=== PATIENT | male | born 1955 | race Caucasian/White ===

== ENCOUNTER 2018-11-08 05:38 | Inpatient (IN) | payer BC ==
[~2018-11-08] VITALS: Ht 177.8 cm; Wt 70.8 kg
[~2018-11-08 05:38] MED LIST: NO HOME MEDS
[2018-11-08] MEDS ORDERED: insulin regular, human 10 units/0.1 ml syringe IV ONE (05:40)
[2018-11-08] MEDS ORDERED: insulin regular, human 10 units/0.1 ml syringe SQ ONE (05:40)
[2018-11-08] MEDS ORDERED: normal saline 1000ML IV soln IVB ONE ×2 (05:40→06:20)
--- NOTE | 2018-11-08 06:11 | NUR ---
DR SMITH AT BEDSIDE WITH PT
[2018-11-08] MEDS ORDERED: ondansetron/PF 4mg/2ml inj IV ONE (06:20)
[2018-11-08 06:38] LABS: ALANINE AMINOTRANSFERASE 18 U/L (12-78); ALBUMIN 3.7 G/DL (3.4-5.0); ALKALINE PHOSPHATASE 84 IU/L (46-116); ANION GAP 11 (8-16); ASPARTATE AMINO TRANSFERASE 14 U/L (10-37); BILIRUBIN,TOTAL 0.7 MG/DL (0.1-1.0); BLOOD UREA NITROGEN 8 MG/DL (7-18); BUN/CREATININE RATIO 9.1 (5.4-32.0); CALCIUM 9.9 MG/DL (8.5-10.1); CHLORIDE 103 MMOL/L (99-107); CREATININE 0.88 MG/DL (0.60-1.10); GLUCOSE 104 MG/DL (70-104); POTASSIUM 3.5 MMOL/L (3.5-5.1); SODIUM 138 MMOL/L (135-145); TOTAL PROTEIN 7.3 G/DL (6.4-8.2); eGFR 88 ML/MIN
[2018-11-08 06:43] LABS: CHOL/HDL RATIO 3.1 (0.00-4.99); CHOLESTEROL 166 MG/DL (0-200); HDL CHOLESTEROL 53 MG/DL (35-60); LDL CHOLESTEROL 94 MG/DL (50-100); TRIGLYCERIDES 84 MG/DL (20-135)
[2018-11-08 07:18] LABS: CLARITY,URINE CLEAR (Clear); COLOR,URINE YELLOW (Yellow); GLUCOSE, URINE NEGATIVE (Neg); KETONES,URINE 40 mg/dl (Neg); LEUKOCYTE ESTERASE ,URINE NEGATIVE (Neg); NITRITES, URINE NEGATIVE (Neg); OCCULT BLOOD,URINE SMALL (Neg); PROTEIN,URINE NEGATIVE (Neg); UROBILINOGEN,URINE 0.2 E.U/dL (0.2-1.0)
[2018-11-08 07:23] LABS: UA COLLECTION TYPE CLN CATCH MIDSTREAM
[2018-11-08 07:24] LABS: MUCUS STRANDS FEW /LPF (Neg); SQUAMOUS EPITHELIAL CELL,UR FEW /LPF (FEW)
[2018-11-08 07:25] LABS: BASOPHILS % (AUTO) 0.3 % (0-1); EOSINOPHILS % (AUTO) 0.6 % (0-6); HEMATOCRIT 43.4 % (42.0-52.0); LYMPHOCYTES # (AUTO) 0.9 X10'3 (1.1-4.8); LYMPHOCYTES % (AUTO) 12.5 % (21-51); MEAN CORPUSCULAR HEMOGLOBIN 32.8 PG (27.0-31.0); MEAN CORPUSCULAR HGB CONC 34.5 g/dL (33.0-36.5); MEAN PLATELET VOLUME 7.1 FL (7.4-10.4); MONOCYTES # (AUTO) 0.5 X10'3 (0-0.9); MONOCYTES % (AUTO) 6.3 % (2-12); NEUTROPHILS # (AUTO) 5.8 X10'3 (1.8-7.7); NEUTROPHILS % (AUTO) 80.3 % (42-75); PLATELET COUNT 297 X10'3 (140-440); RED BLOOD COUNT 4.57 X10'6 (4.70-6.10); RED CELL DISTRIBUTION WIDTH 12.7 % (11.5-14.5); WHITE BLOOD COUNT 7.3 X10'3 (4.5-11.0)
[2018-11-08 07:25] LABS: BACTERIA,URINE FEW /HPF (Neg); WBC,URINE 0-4 /HPF (0-4)
[2018-11-08] MEDS ORDERED: acetaminophen 325mg tablet PO PRN (08:05)
[2018-11-08] MEDS ORDERED: magnesium hydroxide 30ml (MOM) UD suspension PO PRN (08:05)
[2018-11-08] MEDS ORDERED: HYDROmorphone inj. 0.5 MG/0.5 ML DISP.SYRIN IV PRN (08:05)
[2018-11-08] MEDS ORDERED: HYDROcodone/acetaminophen 10/325mg tab PO PRN (08:05)
[2018-11-08] MEDS ORDERED: metoclopramide 5 mg/ml inj IV PRN (08:05)
[2018-11-08] MEDS ORDERED: HYDROcodone/acetaminophen 5mg/325mg tablet PO PRN (08:05)
[2018-11-08] MEDS ORDERED: ondansetron/PF 4mg/2ml inj IV PRN (08:05)
[2018-11-08] MEDS: normal saline 1000ml 1,000 ML IV SCH ×2 (08:45→19:31)
--- NOTE | 2018-11-08 09:20 | NUR ---
attempted to call report to ophelia franklin, RN unavailable to take report.
[2018-11-08 10:26] VITALS: BP 134/78
[2018-11-08 15:04] LABS: PARTIAL THROMBOPLASTIN TIME 30 SECONDS (22-32)
[2018-11-08] MEDS: cefotetan 1gm/50ml IVPB 50 ML IV SCH ×2 (16:20→19:32)
--- NOTE | 2018-11-08 18:50 | NUR ---
Patient in room [facility]. I have received report from HANK Cueto and had the opportunity to ask questions and assume patient care.
[2018-11-08 20:00] VITALS: BP_SYST 135; BP_SYST 140; BP_SYST 150; BP_DIAS 74; BP_DIAS 87
[2018-11-09] VITALS (14 sets, daily range): BP systolic 117–153; BP diastolic 62–94
[2018-11-09] MEDS: normal saline 1000ml 1,000 ML IV SCH (03:10)
[2018-11-09 04:45] LABS: BASOPHILS % (AUTO) 0.4 % (0-1); EOSINOPHILS # (AUTO) 0.1 X10'3 (0-0.9); EOSINOPHILS % (AUTO) 1.8 % (0-6); HEMATOCRIT 39.9 % (42.0-52.0); HEMOGLOBIN 13.6 g/dl (14.0-17.9); LYMPHOCYTES # (AUTO) 1.2 X10'3 (1.1-4.8); LYMPHOCYTES % (AUTO) 16.6 % (21-51); MEAN CORPUSCULAR HEMOGLOBIN 32.8 PG (27.0-31.0); MEAN CORPUSCULAR HGB CONC 34.1 g/dL (33.0-36.5); MEAN CORPUSCULAR VOLUME 96.1 FL (78-98); MEAN PLATELET VOLUME 7.1 FL (7.4-10.4); MONOCYTES # (AUTO) 0.7 X10'3 (0-0.9); MONOCYTES % (AUTO) 9.1 % (2-12); NEUTROPHILS # (AUTO) 5.4 X10'3 (1.8-7.7); NEUTROPHILS % (AUTO) 72.1 % (42-75); PLATELET COUNT 238 X10'3 (140-440); RED BLOOD COUNT 4.16 X10'6 (4.70-6.10); RED CELL DISTRIBUTION WIDTH 12.9 % (11.5-14.5); WHITE BLOOD COUNT 7.5 X10'3 (4.5-11.0)
[2018-11-09 04:48] LABS: ANION GAP 11 (8-16); BLOOD UREA NITROGEN 10 MG/DL (7-18); BUN/CREATININE RATIO 10.3 (5.4-32.0); CALCIUM 9.8 MG/DL (8.5-10.1); CHLORIDE 106 MMOL/L (99-107); CREATININE 0.97 MG/DL (0.60-1.10); GLUCOSE 58 MG/DL (70-104); POTASSIUM 3.9 MMOL/L (3.5-5.1); SODIUM 139 MMOL/L (135-145); TOTAL CARBON DIOXIDE 21.8 MMOL/L (24-32); eGFR 79 ML/MIN
[2018-11-09] MEDS ORDERED: dextrose 50%-water 50ml dispensing syringe IV ONE (04:55)
--- NOTE | 2018-11-09 06:19 | NUR ---
Problems reprioritized. Patient report given, questions answered & plan of care reviewed with HANK Rajput.
--- NOTE | 2018-11-09 06:22 | NUR ---
Patient in room [facility]. I have received report from HANK Black and had the opportunity to ask questions and assume patient care.
[2018-11-09] MEDS ORDERED: gentamicin 40 MG/1 ML inj ONE (15:15)
[2018-11-09] MEDS ORDERED: clindamycin phosphate 150mg/ml inj. ONE (15:15)
--- NOTE | 2018-11-09 18:17 | NUR ---
Patient in room [facility]. I have received report from Regulo Molina and had the opportunity to ask questions and assume patient care. Addendum: 11/09/18 at 1817 by Arti Rice RN Amended: Links added.
--- NOTE | 2018-11-09 18:17 | NUR ---
Problems reprioritized. Patient report given, questions answered & plan of care reviewed with HANK Chi.
[2018-11-09] MEDS ORDERED: ringers solution, lacted 1,000 ML IV SCH (18:42)
[2018-11-09] MEDS ORDERED: sevoflurane 250ml liquid IH ONE (18:45)
[2018-11-09] MEDS ORDERED: meperidine/PF 25mg/ml syringe IV PRN ×3 (18:45)
[2018-11-09] MEDS ORDERED: proCHLORperazine 10 MG/2 ml inj IV PRN (18:45)
[2018-11-09] MEDS: cefotetan inj 1 GM in normal saline 50ml IV soln 50 ML IV SCH ×2 (18:45→19:15)
[2018-11-09] MEDS ORDERED: ondansetron/PF 4mg/2ml inj IV PRN (18:45)
[2018-11-09] MEDS ORDERED: glycopyrrolate 0.2mg/ml inj ONE (18:45)
[2018-11-09] MEDS ORDERED: HYDROmorphone inj. 0.5 MG/0.5 ML DISP.SYRIN IV PRN ×2 (18:45)
[2018-11-09] MEDS ORDERED: midazolam 2 mg/2 ml injection ONE (18:48)
[2018-11-09] MEDS ORDERED: fentaNYL /PF 50mcg/ml 5ml ampule ONE ×2 (18:48→20:55)
[2018-11-09] MEDS ORDERED: propofol inj 20 ML IV ONE (18:49)
[2018-11-09] MEDS ORDERED: rocuronium 10mg/ml inj IV ONE ×3 (18:49→20:53)
--- NOTE | 2018-11-09 19:39 | NUR ---
pt remains off the floor had left for or prior to my coming on.
--- NOTE | 2018-11-09 20:00 | NUR ---
PT IN THE OPERATING ROOM Addendum: 11/10/18 at 0037 by Arti Rice RN Amended: Links added.
--- NOTE | 2018-11-09 20:00 | NUR ---
PT IN THE OPERATING ROOM UNABLE TO DO ORTHOSTATIC VITALS ON HIM. Addendum: 11/10/18 at 0039 by Arti Rice RN Amended: Links added.
[2018-11-09] MEDS ORDERED: albumin (Human) 5% 250ml 250 ML IV ONE (21:52)
[2018-11-09] MEDS ORDERED: ACETAMINOPHEN 1000 MG/100 ML IV ONE (21:55)
[2018-11-09] MEDS ORDERED: neostigmine methylsulfate 1 MG/ML 10ml vial ONE (22:48)
[2018-11-09] MEDS ORDERED: fluoroscein sod 10% (100mg/ml) 5ml vial ONE (23:01)
[2018-11-09] MEDS ORDERED: HYDROcodone/acetaminophen 10/325mg tab PO PRN (23:10)
--- NOTE | 2018-11-09 23:10 | NUR ---
Received from OR via bed, accompanied by Anesthesiologist. Report received. Initial physical assessment done and recorded. Dr. Mehta at bedside.
[2018-11-09] MEDS ORDERED: HYDROmorphone/NS 1 mg/ml CADD 50 ML IV SCH (23:15)
[2018-11-09] MEDS ORDERED: naloxone 0.4 mg/ml inj IV PRN (23:15)
[2018-11-09] MEDS ORDERED: CADD PCA waste documentation MC SCH (23:20)
[2018-11-09] MEDS: ketorolac trometh. 30mg/ml inj. IV PRN (23:50)
[2018-11-10] VITALS (12 sets, daily range): BP systolic 108–151; BP diastolic 66–85
[2018-11-10] MEDS ORDERED: HYDROmorphone/NS 1 mg/ml CADD 50 ML IV SCH
[2018-11-10] MEDS: normal saline 1000ml 1,000 ML IV SCH ×5 (00:03→23:25)
--- NOTE | 2018-11-10 00:10 | NUR ---
Discharge criteria met, report to receiving floor. Transferred to room in stable condition.
[2018-11-10] MEDS: HYDROmorphone/NS 1 mg/ml CADD 50 ML IV SCH ×13 (00:12→23:00)
--- NOTE | 2018-11-10 01:30 | NUR ---
pt awoke asked what was done. pain under control with encouraging cadd use. scd's put on arrival and still on.
--- NOTE | 2018-11-10 02:00 | NUR ---
TOOK OVER CARE FROM TOMI MCKINNEY, I AGREE WITH HER CHARTING. WILL CONTINUE TO MONITOR.
--- NOTE | 2018-11-10 02:02 | NUR ---
Problems reprioritized. Patient report given, questions answered & plan of care reviewed with Roselia Molina.
--- NOTE | 2018-11-10 06:13 | NUR ---
Patient in room [facility]. I have received report from gopal MCKINNEY and had the opportunity to ask questions and assume patient care.
[2018-11-10 06:36] LABS: BASOPHILS % (AUTO) 0.1 % (0-1); EOSINOPHILS % (AUTO) 0 % (0-6); HEMATOCRIT 36.9 % (42.0-52.0); HEMOGLOBIN 12.5 g/dl (14.0-17.9); LYMPHOCYTES # (AUTO) 0.2 X10'3 (1.1-4.8); LYMPHOCYTES % (AUTO) 2.2 % (21-51); MEAN CORPUSCULAR HEMOGLOBIN 32.7 PG (27.0-31.0); MEAN PLATELET VOLUME 6.5 FL (7.4-10.4); MONOCYTES # (AUTO) 0.4 X10'3 (0-0.9); MONOCYTES % (AUTO) 5.9 % (2-12); NEUTROPHILS # (AUTO) 6.4 X10'3 (1.8-7.7); NEUTROPHILS % (AUTO) 91.8 % (42-75); PLATELET COUNT 202 X10'3 (140-440); RED BLOOD COUNT 3.84 X10'6 (4.70-6.10); RED CELL DISTRIBUTION WIDTH 13.1 % (11.5-14.5)
--- NOTE | 2018-11-10 06:49 | NUR ---
Problems reprioritized. Patient report given, questions answered & plan of care reviewed with ELMA MCKINNEY.
[2018-11-10 06:52] LABS: ALBUMIN 3.2 G/DL (3.4-5.0); ANION GAP 12 (8-16); BLOOD UREA NITROGEN 8 MG/DL (7-18); BUN/CREATININE RATIO 9.3 (5.4-32.0); CALCIUM 9.1 MG/DL (8.5-10.1); CHLORIDE 105 MMOL/L (99-107); CREATININE 0.86 MG/DL (0.60-1.10); GLUCOSE 73 MG/DL (70-104); POTASSIUM 3.5 MMOL/L (3.5-5.1); SODIUM 139 MMOL/L (135-145); TOTAL CARBON DIOXIDE 22.1 MMOL/L (24-32); eGFR 90 ML/MIN
[2018-11-10] MEDS: cefotetan 1gm/50ml IVPB 50 ML IV SCH ×2 (07:23→20:29)
[2018-11-10 07:40] LABS: TOTAL CELLS COUNTED 100
[2018-11-10 07:41] LABS: PLATELET ESTIMATE NORMAL
--- NOTE | 2018-11-10 18:34 | NUR ---
Problems reprioritized. Patient report given, questions answered & plan of care reviewed with Nabeel MCKINNEY.
--- NOTE | 2018-11-10 18:35 | NUR ---
Patient in room [facility]. I have received report from ELMA MCKINNEY and had the opportunity to ask questions and assume patient care.
[2018-11-10] MEDS: ondansetron/PF 4mg/2ml inj IV PRN (19:29)
[2018-11-10] MEDS: mag hydrox/Alum hydrox/simeth 30ml oral suspension PO PRN (19:34)
[2018-11-11] VITALS: BP 111/68
[2018-11-11] MEDS: HYDROmorphone/NS 1 mg/ml CADD 50 ML IV SCH ×12 (01:00→22:52)
[2018-11-11 06:15] LABS: BASOPHILS % (AUTO) 0.2 % (0-1); EOSINOPHILS # (AUTO) 0.1 X10'3 (0-0.9); EOSINOPHILS % (AUTO) 1.3 % (0-6); HEMATOCRIT 29.2 % (42.0-52.0); HEMOGLOBIN 10.3 g/dl (14.0-17.9); LYMPHOCYTES # (AUTO) 0.6 X10'3 (1.1-4.8); LYMPHOCYTES % (AUTO) 6.6 % (21-51); MEAN CORPUSCULAR HEMOGLOBIN 33.7 PG (27.0-31.0); MEAN CORPUSCULAR HGB CONC 35.4 g/dL (33.0-36.5); MEAN CORPUSCULAR VOLUME 95.1 FL (78-98); MEAN PLATELET VOLUME 6.9 FL (7.4-10.4); MONOCYTES # (AUTO) 0.6 X10'3 (0-0.9); NEUTROPHILS # (AUTO) 8.2 X10'3 (1.8-7.7); NEUTROPHILS % (AUTO) 85.9 % (42-75); PLATELET COUNT 185 X10'3 (140-440); RED BLOOD COUNT 3.07 X10'6 (4.70-6.10); RED CELL DISTRIBUTION WIDTH 12.6 % (11.5-14.5); WHITE BLOOD COUNT 9.6 X10'3 (4.5-11.0)
--- NOTE | 2018-11-11 06:27 | NUR ---
Problems reprioritized. Patient report given, questions answered & plan of care reviewed with ELMA MCKINNEY.
--- NOTE | 2018-11-11 06:34 | NUR ---
Patient in room [facility]. I have received report from Nabeel MCKINNEY and had the opportunity to ask questions and assume patient care.
[2018-11-11 06:41] LABS: ALBUMIN 2.3 G/DL (3.4-5.0); ANION GAP 5 (8-16); BLOOD UREA NITROGEN 9 MG/DL (7-18); BUN/CREATININE RATIO 10.3 (5.4-32.0); CALCIUM 8.2 MG/DL (8.5-10.1); CHLORIDE 106 MMOL/L (99-107); CREATININE 0.87 MG/DL (0.60-1.10); GLUCOSE 102 MG/DL (70-104); POTASSIUM 3.3 MMOL/L (3.5-5.1); SODIUM 139 MMOL/L (135-145); TOTAL CARBON DIOXIDE 28.4 MMOL/L (24-32); eGFR 89 ML/MIN
[2018-11-11 06:56] VITALS: BP 125/70
[2018-11-11] MEDS: normal saline 1000ml 1,000 ML IV SCH (10:48)
[2018-11-11] MEDS: ondansetron/PF 4mg/2ml inj IV PRN ×2 (14:13→21:40)
[2018-11-11] MEDS: mag hydrox/Alum hydrox/simeth 30ml oral suspension PO PRN ×2 (14:16→21:40)
--- NOTE | 2018-11-11 18:30 | NUR ---
Patient in room [facility]. I have received report from HANK Mancia and had the opportunity to ask questions and assume patient care. Addendum: 11/11/18 at 1843 by Andres Fonseca RN Amended: Links added.
--- NOTE | 2018-11-11 18:31 | NUR ---
patient having difficulty voiding Dr Rogers called. Patient scanned 850mls observed, patient straight cathed only 250mls out. patient bladder scanned again 650 observed. patient encouraged to void. unable to void. order received to place Amato cathter. 950mls observed in drainage bag. patient appears comfortable now. Seen in am by Dr Mart. wound orders given see intervention. Tolerating clear liquid diet. Continues with Dilaudid cadd. report given to noelle MCKINNEY
[2018-11-11 19:00] VITALS: BP 123/71
[2018-11-11 22:15] VITALS: BP 150/81
--- NOTE | 2018-11-11 22:15 | NUR ---
pt has been coughing, feels like sputum was stuck in through. enc pt to splint abd with pillow or blanket to c&db. pt coughed up thick isbell sputum x2, now states good relied. sob gone. Addendum: 11/12/18 at 0203 by Andres Fonseca RN Amended: Links added.
[2018-11-12] MEDS: HYDROmorphone/NS 1 mg/ml CADD 50 ML IV SCH ×9 (00:50→16:25)
[2018-11-12] MEDS: ketorolac trometh. 30mg/ml inj. IV PRN ×4 (04:19→17:35)
--- NOTE | 2018-11-12 04:24 | NUR ---
pt feels like "blood sugar" might be low. bg wnl. denies dizzines, states just not feeling well. Addendum: 11/12/18 at 0427 by Andres Fonseca RN Amended: Links added.
[2018-11-12 05:22] LABS: BASOPHILS % (AUTO) 0.2 % (0-1); EOSINOPHILS % (AUTO) 0.1 % (0-6); HEMATOCRIT 35.5 % (42.0-52.0); HEMOGLOBIN 12.3 g/dl (14.0-17.9); LYMPHOCYTES # (AUTO) 0.4 X10'3 (1.1-4.8); LYMPHOCYTES % (AUTO) 2.6 % (21-51); MEAN CORPUSCULAR HEMOGLOBIN 32.6 PG (27.0-31.0); MEAN CORPUSCULAR HGB CONC 34.6 g/dL (33.0-36.5); MEAN CORPUSCULAR VOLUME 94.4 FL (78-98); MEAN PLATELET VOLUME 6.9 FL (7.4-10.4); MONOCYTES # (AUTO) 0.6 X10'3 (0-0.9); MONOCYTES % (AUTO) 4.5 % (2-12); NEUTROPHILS # (AUTO) 13.1 X10'3 (1.8-7.7); NEUTROPHILS % (AUTO) 92.6 % (42-75); PLATELET COUNT 249 X10'3 (140-440); RED BLOOD COUNT 3.76 X10'6 (4.70-6.10); WHITE BLOOD COUNT 14.1 X10'3 (4.5-11.0)
[2018-11-12 05:33] LABS: ALBUMIN 2.7 G/DL (3.4-5.0); ANION GAP 6 (8-16); BLOOD UREA NITROGEN 12 MG/DL (7-18); BUN/CREATININE RATIO 13.5 (5.4-32.0); CHLORIDE 100 MMOL/L (99-107); CREATININE 0.89 MG/DL (0.60-1.10); GLUCOSE 139 MG/DL (70-104); POTASSIUM 3.6 MMOL/L (3.5-5.1); SODIUM 138 MMOL/L (135-145); TOTAL CARBON DIOXIDE 31.7 MMOL/L (24-32); eGFR 87 ML/MIN
[2018-11-12 05:44] LABS: CALCIUM 10.1 MG/DL (8.5-10.1)
--- NOTE | 2018-11-12 06:21 | NUR ---
Problems reprioritized. Patient report given, questions answered & plan of care reviewed with HANK MARTINEZ. Addendum: 11/12/18 at 0622 by Andres Fonseca RN Amended: Links added.
--- NOTE | 2018-11-12 06:30 | NUR ---
Patient in room [facility]. I have received report from Sugey MCKINNEY and had the opportunity to ask questions and assume patient care.
[2018-11-12 07:09] VITALS: BP 144/88
[2018-11-12] MEDS: normal saline 1000ml 1,000 ML IV SCH ×2 (08:58→19:27)
[2018-11-12 11:54] VITALS: BP 142/84
[2018-11-12] MEDS: mag hydrox/Alum hydrox/simeth 30ml oral suspension PO PRN (14:03)
[2018-11-12] MEDS ORDERED: calcium carbonate 500mg chew tablet PO PRN (16:05)
[2018-11-12] MEDS ORDERED: acetaminophen 325mg tablet PO PRN (16:05)
--- NOTE | 2018-11-12 18:09 | NUR ---
Problems reprioritized. Patient report given, questions answered & plan of care reviewed with Evelyn MCKINNEY.
--- NOTE | 2018-11-12 18:20 | NUR ---
Patient in room [facility]. I have received report from Antoinette MCKINNEY and had the opportunity to ask questions and assume patient care.
[2018-11-12 19:00] VITALS: BP 140/86
--- NOTE | 2018-11-12 19:00 | NUR ---
Patient drank his apple juice only. Patient denied having any nausea or pain to abdomen. First time with full liquids and patient did not seem impressed. Offered jello, more juice,tea, patient stated "no".Offered to take away his tray and pt. stated, "no, have that boy come and take the tray away in 10 minutes". Patient would not let me take his tray at this time. Addendum: 11/12/18 at 2226 by Evelyn Regan RN Amended: Links added.
[2018-11-12] MEDS: piperacillin/tazo 3.375gm/50ml 50 ML IV SCH (19:27)
--- NOTE | 2018-11-12 19:30 | NUR ---
Assessing patient who stated, "and yes, this needs emptying" pointing to his colostomy bag. I replied that I would get a cannister for him to empty it in to. Pt. said, "don't you get paid to do that? "To which I replied that yes I do, and also part of nursing is to help educate patients on their own self care and to encourage this for their own recovery. Pt. replied, " so you get paid the same whether you empty it or not". I replied that yes, I do, and I would be happy to assist him if needed, and that my understanding from the previous nurse was that he is doing really good by himself and even changed out his colostomy bag earlier today. Patient appeared upset at this time so I asked him, do you want to stay in the bed and try to empty, or go to the toilet and try leaning over. Patient stated that he could walk, and that he would go to the bathroom. As patient was standing in front of the toilet, his f/c tubing was hanging down in front of him as well as his IV tubing. Patient went to open colostomy bag saying " so I'll just let it splash down then, to which I replied, no, it might be better if you sit on the toilet instead and do it that way. I was guiding patient on how to turn when he pushed the IV pole into me and yelled "stop pushing me down on to the toilet". At this time I had been pushed out of bathroom door. Patient yelled at me to leave him and get out of his room and close the door behind me. I reported all this to charge nurse and asked that he go check on the patient to make sure he was ok.
--- NOTE | 2018-11-12 20:00 | NUR ---
Later on after the charge nurse had gone in to check on patient and help him, I knocked on the door and went in with pt's medications. Patient stated " I want Russel to give me my medication not you, and I don't want you in my room again." Another nurse offered to see if he would take them from her, as charge nurse busy, and patient did.
[2018-11-12] MEDS: tamsulosin 0.4mg capsule PO SCH (20:27)
[2018-11-12] MEDS: famotidine 20mg tablet PO SCH (20:27)
[2018-11-12] MEDS ORDERED: piperacillin/tazo 3.375gm/50ml 50 ML IV SCH (22:26)
[2018-11-13] VITALS: BP 140/86
[2018-11-13] MEDS: piperacillin/tazo 3.375gm/50ml 50 ML IV SCH ×4 (03:41→21:49)
[2018-11-13 05:12] LABS: BASOPHILS # (AUTO) 0.1 X10'3 (0-0.2); BASOPHILS % (AUTO) 0.5 % (0-1); EOSINOPHILS # (AUTO) 0.6 X10'3 (0-0.9); EOSINOPHILS % (AUTO) 4.6 % (0-6); HEMATOCRIT 33.2 % (42.0-52.0); HEMOGLOBIN 11.2 g/dl (14.0-17.9); LYMPHOCYTES # (AUTO) 0.6 X10'3 (1.1-4.8); LYMPHOCYTES % (AUTO) 4.3 % (21-51); MEAN CORPUSCULAR HEMOGLOBIN 32.4 PG (27.0-31.0); MEAN CORPUSCULAR HGB CONC 33.7 g/dL (33.0-36.5); MEAN CORPUSCULAR VOLUME 96.3 FL (78-98); MEAN PLATELET VOLUME 7.2 FL (7.4-10.4); MONOCYTES # (AUTO) 0.7 X10'3 (0-0.9); MONOCYTES % (AUTO) 5.3 % (2-12); NEUTROPHILS # (AUTO) 11.2 X10'3 (1.8-7.7); NEUTROPHILS % (AUTO) 85.3 % (42-75); PLATELET COUNT 259 X10'3 (140-440); RED BLOOD COUNT 3.45 X10'6 (4.70-6.10); WHITE BLOOD COUNT 13.1 X10'3 (4.5-11.0)
[2018-11-13 05:18] LABS: ALBUMIN 2.3 G/DL (3.4-5.0); ANION GAP 2 (8-16); BLOOD UREA NITROGEN 19 MG/DL (7-18); BUN/CREATININE RATIO 19.2 (5.4-32.0); CALCIUM 10.8 MG/DL (8.5-10.1); CHLORIDE 104 MMOL/L (99-107); CREATININE 0.99 MG/DL (0.60-1.10); GLUCOSE 111 MG/DL (70-104); POTASSIUM 3.9 MMOL/L (3.5-5.1); SODIUM 137 MMOL/L (135-145); TOTAL CARBON DIOXIDE 30.9 MMOL/L (24-32); eGFR 77 ML/MIN
--- NOTE | 2018-11-13 06:01 | NUR ---
Patient in room [facility]. I have received report from Evelyn MCKINNEY and had the opportunity to ask questions and assume patient care.
--- NOTE | 2018-11-13 06:02 | NUR ---
Patient in room [facility]. I have received report from Evelyn MCKINNEY and had the opportunity to ask questions and assume patient care.
--- NOTE | 2018-11-13 06:20 | NUR ---
Problems reprioritized. Patient report given, questions answered & plan of care reviewed with Antoinette MCKINNEY.
[2018-11-13 07:39] VITALS: BP 131/75
[2018-11-13] MEDS: famotidine 20mg tablet PO SCH ×2 (07:58→21:47)
[2018-11-13] MEDS: enoxaparin 40mg/0.4ml syringe SUBCUT SCH (07:59)
[2018-11-13] MEDS: ketorolac trometh. 30mg/ml inj. IV PRN (08:06)
[2018-11-13] MEDS: acetaminophen 325mg tablet PO PRN (08:07)
[2018-11-13 11:41] VITALS: BP 124/71
--- NOTE | 2018-11-13 12:31 | NUR ---
Patient would like to wait to take out FC after he eats lunch.
--- NOTE | 2018-11-13 12:59 | NUR ---
Wound team POC. Arrived at bedside for assistance and education with new ostomy. Explained procedure to pt and pt gave informed verbal consent. Pt is alert and reports no pain at this time. Pt with new colostomy following a sigmoid colectomy performed on 11/09/[address] Mehta after he presented to the ED with severe abdominal pain and vomitting. Pt states he has been assisting nursing with care and changing of the wafer and does not want it removed at this time. Assessed stoma appearance through the bag and it appears moist, red and intact with no signs of complications. Provided educational material and answered all questions bedside. Bed left in lowest position, call light and personal items within reach. Addendum: 11/13/18 at 1302 by Kyle Irving RN Amended: Links added.
--- NOTE | 2018-11-13 14:33 | NUR ---
Initial: Pt admit with abdominal pain and with possible partial small-bowel obstruction. Pt now s/p Gonzales's procedure. Pt seen at bedside given written and verbal colostomy nutrition therapy education. Pt with no questions at this time. RD contact information provided. Patient's diet just advanced to regular. Pt reports low appetite s/p surgery however states he is generally with low PO intake. Pt denies any food allergies and endorses some difficulty chewing, pt agreeable to soft to chew foods, dietary notified. LBM 11/12 with 1350 mL stool output per I&O. Will continue to follow. Recommendations: 1) Continue regular soft to chew diet 2) Monitor need for ONS 3) Wt per rx Addendum: 11/13/18 at [address] Amended: Links added.
--- NOTE | 2018-11-13 16:13 | NUR ---
CHIARA drain DC'd at 1605. Catheter intact, pt tolerated well. Drain incision site covered with optifoam. Will continue to monitor.
--- NOTE | 2018-11-13 18:04 | NUR ---
Problems reprioritized. Patient report given, questions answered & plan of care reviewed with Nicole MCKINNEY.
[2018-11-13 20:00] VITALS: BP 142/80
[2018-11-13] MEDS: tamsulosin 0.4mg capsule PO SCH (21:47)
[2018-11-13] MEDS: lactobacillus rhamnosus 10,000 MMU CELLS/CAPSULE PO SCH (21:47)
--- NOTE | 2018-11-13 23:55 | NUR ---
Bladder scan @2300 showed 270ml. Will continue to monitor.
[2018-11-14] VITALS: BP 128/78
--- NOTE | 2018-11-14 00:30 | NUR ---
Patient noted to have a small leakage from ostomy site. Attempted to change ostomy. Patient states his diameter size is 59mm. The last time it got changed it took the nurse over 5 hrs to find the correct size. Patient states the 57mm does not work it is TOO SMALL. Charge nurse went to ICU, Tele, and down to the stock room to located the size. Unable to located the correct size. Nurse applied silk tape to the edges of the ostomy. Will continue with care.
[2018-11-14] MEDS: piperacillin/tazo 3.375gm/50ml 50 ML IV SCH ×2 (04:08→12:08)
[2018-11-14] MEDS: acetaminophen 325mg tablet PO PRN (04:14)
--- NOTE | 2018-11-14 04:30 | NUR ---
Ostomy not leaking with tape applied.
--- NOTE | 2018-11-14 05:51 | NUR ---
Patient bladder scan this morning showed 490ml. Straight cath under sterile procedure. Return 550m of clear yellow urine. Patient tolerated well.
--- NOTE | 2018-11-14 06:30 | NUR ---
Patient in room [facility]. I have received report from Hollie and had the opportunity to ask questions and assume patient care. Addendum: 11/14/18 at 1057 by Carmenza Cruz RN Amended: Links added.
--- NOTE | 2018-11-14 06:40 | NUR ---
Problems reprioritized. Patient report given, questions answered & plan of care reviewed with Carmenza MCKINNEY.
[2018-11-14 07:00] VITALS: BP 138/83
[2018-11-14] MEDS: enoxaparin 40mg/0.4ml syringe SUBCUT SCH (07:37)
[2018-11-14] MEDS: lactobacillus rhamnosus 10,000 MMU CELLS/CAPSULE PO SCH (07:37)
[2018-11-14] MEDS: famotidine 20mg tablet PO SCH (07:37)
[2018-11-14] MEDS ORDERED: ONDA4TAB6 PO (09:33)
[2018-11-14] MEDS ORDERED: AMOX-580 PO (09:38)
[2018-11-14] MEDS ORDERED: FLO0.4C PO (10:33)
[2018-11-14 12:00] VITALS: BP 136/77
[2018-11-15] MEDS ORDERED: ibuprofen 200mg tablet PO PRN (08:00)
== END 2018-11-14 17:50 | disposition home health service (06) | DRG 331 ==
LOC: ER 05:38 → OBSVTOIN 10:03 → SUR 3N 10:03 → CMPBEDREQ 11-12 19:45
PROVIDERS: ADMIT Internal Medicine; ATTEND Internal Medicine
PROC: 0DBP0ZZ Excision of Rectum, Open Approach (ICD-10-PCS; 2018-11-09)
PROC: 0D1N0Z4 Bypass Sigmoid Colon to Cutaneous, Open Approach (ICD-10-PCS; 2018-11-09)
PROC: 0DBN0ZZ Excision of Sigmoid Colon, Open Approach (ICD-10-PCS; principal; 2018-11-09 18:46)
DX: K56.691 Other complete intestinal obstruction (principal); F12.90 Cannabis use, unspecified, uncomplicated; F17.210 Nicotine dependence, cigarettes, uncomplicated; K63.9 Disease of intestine, unspecified; J45.909 Unspecified asthma, uncomplicated; R33.9 Retention of urine, unspecified; Z79.899 Other long term (current) drug therapy
CPT/HCPCS: 96361; 96374; 99285; Z7506; 36415; 74176; 80048; 80053; 80061; 81001; 82378; 82948; 85025; 85610; 85730; 86885; 86900; 86901; 86920; 87070; 93005; 97116; 97161; 97530; A4421; A6253; A6266; A6449; A7000; C1758; G0378; J0131; J1170; J1580; J1650; J1885; J2250; J2405; J2543; J2704; J2710; J2765; J3010; J3490; J7030; J7040; J7120; P9045

== ENCOUNTER 2019-01-15 07:07 | Inpatient (IN) | payer BC ==
[2019-01-14 10:33] LABS: BASOPHILS # (AUTO) 0.1 X10'3 (0-0.2); BASOPHILS % (AUTO) 1.1 % (0-1); EOSINOPHILS # (AUTO) 0.5 X10'3 (0-0.9); EOSINOPHILS % (AUTO) 8.1 % (0-6); LYMPHOCYTES # (AUTO) 1.7 X10'3 (1.1-4.8); MEAN CORPUSCULAR HEMOGLOBIN 31.6 PG (27.0-31.0); MEAN CORPUSCULAR HGB CONC 33.4 g/dL (33.0-36.5); MEAN CORPUSCULAR VOLUME 94.6 FL (78-98); MEAN PLATELET VOLUME 7.1 FL (7.4-10.4); MONOCYTES # (AUTO) 0.4 X10'3 (0-0.9); MONOCYTES % (AUTO) 7.8 % (2-12); PRE OP PLATELET COUNT 241 X10'3 (140-440); RED BLOOD COUNT 4.44 X10'6 (4.70-6.10); RED CELL DISTRIBUTION WIDTH 14.8 % (11.5-14.5)
[2019-01-14 11:21] LABS: CLARITY,URINE CLEAR (Clear); COLOR,URINE STRAW (Yellow); GLUCOSE, URINE NEGATIVE (Neg); KETONES,URINE NEGATIVE (Neg); LEUKOCYTE ESTERASE ,URINE NEGATIVE (Neg); NITRITES, URINE NEGATIVE (Neg); OCCULT BLOOD,URINE NEGATIVE (Neg); PROTEIN,URINE NEGATIVE (Neg); UROBILINOGEN,URINE 0.2 E.U/dL (0.2-1.0)
[2019-01-14 11:25] LABS: ALKALINE PHOSPHATASE 84 IU/L (46-116); BLOOD UREA NITROGEN 12 MG/DL (7-18); BUN/CREATININE RATIO 12.5 (5.4-32.0); CALCIUM 10.5 MG/DL (8.5-10.1); CHLORIDE 107 MMOL/L (99-107); CREATININE 0.96 MG/DL (0.60-1.10); PRE OP ALT 23 U/L (30-65); PRE OP ANION GAP 6 (8-16); PRE OP AST 16 U/L (10-37); PRE OP BILIRUB, TOTAL 0.3 MG/DL (0.0-1.0); PRE OP GLUCOSE 90 MG/DL (70-104); PRE OP SODIUM 141 MMOL/L (135-145); TOTAL CARBON DIOXIDE 27.9 MMOL/L (24-32); TOTAL PROTEIN 8.2 G/DL (6.4-8.2); eGFR 80 ML/MIN
[2019-01-14 11:27] LABS: UA COLLECTION TYPE CLN CATCH MIDSTREAM
[~2019-01-15] VITALS: Ht 177.8 cm; Wt 70.0 kg
[2019-01-15] VITALS (21 sets, daily range): BP systolic 120–156; BP diastolic 58–94
[2019-01-15] MEDS ORDERED: ringers solution, lacted 1,000 ML IV SCH ×2 (07:15→08:20)
[2019-01-15] MEDS ORDERED: ceFOXitin sod/dextrose 2g/50ml 50 ML IV ONE (07:15)
[2019-01-15] MEDS ORDERED: famotidine 20mg tablet PO ONE (07:15)
[2019-01-15] MEDS ORDERED: ondansetron/PF 4mg/2ml inj IV PRN (08:20)
[2019-01-15] MEDS ORDERED: meperidine/PF 25mg/ml syringe IV PRN ×2 (08:20)
[2019-01-15] MEDS ORDERED: proCHLORperazine 10 MG/2 ml inj IV PRN (08:20)
[2019-01-15] MEDS ORDERED: gentamicin 40 MG/1 ML inj ONE (13:27)
[2019-01-15] MEDS ORDERED: clindamycin phosphate 150mg/ml inj. ONE (13:27)
[2019-01-15] MEDS ORDERED: glycopyrrolate 0.2mg/ml inj ONE (13:47)
[2019-01-15] MEDS ORDERED: sevoflurane 250ml liquid IH ONE (13:47)
[2019-01-15] MEDS ORDERED: ondansetron/PF 4mg/2ml inj ONE (13:47)
[2019-01-15] MEDS ORDERED: dexamethasone sod phosphate 10mg/ml inj ONE (13:47)
[2019-01-15] MEDS ORDERED: neostigmine methylsulfate 1 MG/ML 10ml vial ONE (13:47)
[2019-01-15] MEDS ORDERED: LIDOcaine 1%/PF 5ML 10 MG/ML VIAL ONE (13:47)
[2019-01-15] MEDS ORDERED: rocuronium 10mg/ml inj IV ONE ×2 (13:47→14:14)
[2019-01-15] MEDS ORDERED: fentaNYL /PF 50mcg/ml 5ml ampule ONE (13:49)
[2019-01-15] MEDS ORDERED: propofol inj 20 ML IV ONE (13:49)
[2019-01-15] MEDS ORDERED: midazolam 2 mg/2 ml injection ONE (13:49)
[2019-01-15] MEDS ORDERED: BUPIVACAINE liposomal/PF 13.3 MG/ML vial IM ONE ×2 (16:13→16:40)
[2019-01-15] MEDS ORDERED: BUPIVAcaine/PF 2.5mg/ml (0.25%) 10ml vial ONE (16:13)
[2019-01-15] MEDS ORDERED: BUPIVAcaine/PF 2.5 mg/ml (0.25%) 30ml vial ONE (16:13)
--- NOTE | 2019-01-15 17:09 | NUR ---
Received from OR via , accompanied by Anesthesiologist DR. WRIGHT and report given by Anesthesiolgist. PATIENT ARRIVED ON HOSPITAL BED. VSS CHARTED, ABD DRESSING WITH MINIMAL DRAINAGE NOTED AND CIRCLED. CHIARA IN PLACE WITH CLEMENTE RED DRAINAGE NOTED. SCDS IN PLACE, PIV IN PLACE WITH IVF INFUSING ORDERED. WILL CONTINUE TO MONITOR.
--- NOTE | 2019-01-15 17:30 | NUR ---
PATIENT VERY PAINFUL DR. RAMIREZ MADE AWARE DIL CADD ORDERED.
[2019-01-15] MEDS: meperidine/PF 25mg/ml syringe IV PRN ×2 (17:46→18:19)
[2019-01-15] MEDS: HYDROmorphone 1 mg/ml syringe IV PRN (17:50)
[2019-01-15] MEDS ORDERED: naloxone 0.4 mg/ml inj IV PRN (18:45)
[2019-01-15] MEDS ORDERED: CADD PCA waste documentation MC SCH (18:45)
[2019-01-15] MEDS: HYDROmorphone/NS 1 mg/ml CADD 50 ML IV SCH ×4 (19:00→23:00)
--- NOTE | 2019-01-15 19:15 | NUR ---
Patient transported by HANK Ricciair quality specialist nurse via [facility]. Patient painful but had just had CADD placed prior to transport. Otherwise in no apparent distress.
--- NOTE | 2019-01-15 19:29 | NUR ---
PATIENT DISCHARGE CRITERIA MET, REPORT CALLED TO SHANE MCKINNEY ON SURG, ALL QUESTIONS AND CONCERNS ADDRESSED. ABD DRESSING CDI, CHIARA IN PLACE, SCDS IN PLACE. FC DRAINING. PATIENT TRANSFERRED WITH ALL PERSONAL BELONGINGS ACCOMPANIED BY STAFF.
[2019-01-15] MEDS: potassium CL 20mEq in D5-1/2NS 1,000 ML IV SCH (22:13)
[2019-01-16] VITALS: BP 129/81
[2019-01-16] MEDS ORDERED: ceFOXitin 1 GM/D5W 50mL IVPB 1,000 GM in normal saline 100ml IV soln 100 ML IV SCH ×2
[2019-01-16] MEDS: ceFOXitin 1 GM/D5W 50mL IVPB 50 ML IV SCH ×2 (00:13→08:31)
[2019-01-16] MEDS: potassium CL 20mEq in D5-1/2NS 1,000 ML IV SCH ×3 (00:56→15:55)
[2019-01-16] MEDS: HYDROmorphone/NS 1 mg/ml CADD 50 ML IV SCH ×12 (01:00→23:00)
[2019-01-16 04:00] VITALS: BP 134/77
[2019-01-16 04:59] LABS: BASOPHILS % (AUTO) 0.1 % (0-1); EOSINOPHILS % (AUTO) 0 % (0-6); HEMATOCRIT 35.6 % (42.0-52.0); HEMOGLOBIN 12.2 g/dl (14.0-17.9); LYMPHOCYTES # (AUTO) 0.4 X10'3 (1.1-4.8); LYMPHOCYTES % (AUTO) 4.5 % (21-51); MEAN CORPUSCULAR HEMOGLOBIN 32.1 PG (27.0-31.0); MEAN CORPUSCULAR HGB CONC 34.2 g/dL (33.0-36.5); MEAN CORPUSCULAR VOLUME 93.8 FL (78-98); MEAN PLATELET VOLUME 7.1 FL (7.4-10.4); MONOCYTES # (AUTO) 0.5 X10'3 (0-0.9); MONOCYTES % (AUTO) 5.5 % (2-12); NEUTROPHILS # (AUTO) 8.3 X10'3 (1.8-7.7); NEUTROPHILS % (AUTO) 89.9 % (42-75); PLATELET COUNT 241 X10'3 (140-440); RED BLOOD COUNT 3.79 X10'6 (4.70-6.10); RED CELL DISTRIBUTION WIDTH 14.6 % (11.5-14.5); WHITE BLOOD COUNT 9.3 X10'3 (4.5-11.0)
[2019-01-16 05:08] LABS: ALBUMIN 3.1 G/DL (3.4-5.0); ANION GAP 8 (8-16); BLOOD UREA NITROGEN 16 MG/DL (7-18); BUN/CREATININE RATIO 13.4 (5.4-32.0); CALCIUM 8.9 MG/DL (8.5-10.1); CHLORIDE 106 MMOL/L (99-107); CREATININE 1.19 MG/DL (0.60-1.10); GLUCOSE 180 MG/DL (70-104); POTASSIUM 4.6 MMOL/L (3.5-5.1); SODIUM 137 MMOL/L (135-145); TOTAL CARBON DIOXIDE 23.5 MMOL/L (24-32); eGFR 62 ML/MIN
--- NOTE | 2019-01-16 06:16 | NUR ---
Problems reprioritized. Patient report given, questions answered & plan of care reviewed with HANK Mancia.
[2019-01-16 07:00] VITALS: BP 117/69
--- NOTE | 2019-01-16 07:12 | NUR ---
Patient in room [facility]. I have received report from Yash MCKINNEY and had the opportunity to ask questions and assume patient care.
[2019-01-16 10:26] VITALS: BP 128/66
[2019-01-16 18:00] VITALS: BP 143/77
--- NOTE | 2019-01-16 18:30 | NUR ---
Patient in room [facility]. I have received report from HANK Mancia and had the opportunity to ask questions and assume patient care.
--- NOTE | 2019-01-16 18:45 | NUR ---
patient seen by Dr marie, no new orders, patient ambulated x1, much encouragement needed to ambulate. Refused when asked again by staff. present, stated she would walk with patient. CHIARA 70 mls out. Continues with dilaudid cadd effective for pain relief. Resting at time of report. Report given to Stephen MCKINNEY
[2019-01-17] VITALS: BP 117/60
[2019-01-17] MEDS: potassium CL 20mEq in D5-1/2NS 1,000 ML IV SCH ×3 (00:21→16:06)
[2019-01-17] MEDS: HYDROmorphone/NS 1 mg/ml CADD 50 ML IV SCH ×12 (01:00→23:00)
[2019-01-17 05:36] LABS: BASOPHILS % (AUTO) 0.1 % (0-1); EOSINOPHILS % (AUTO) 0 % (0-6); HEMATOCRIT 31.6 % (42.0-52.0); HEMOGLOBIN 10.8 g/dl (14.0-17.9); LYMPHOCYTES # (AUTO) 1.1 X10'3 (1.1-4.8); LYMPHOCYTES % (AUTO) 10.4 % (21-51); MEAN CORPUSCULAR HEMOGLOBIN 32.2 PG (27.0-31.0); MEAN CORPUSCULAR HGB CONC 34.2 g/dL (33.0-36.5); MEAN CORPUSCULAR VOLUME 94.2 FL (78-98); MONOCYTES # (AUTO) 0.9 X10'3 (0-0.9); MONOCYTES % (AUTO) 9.1 % (2-12); NEUTROPHILS # (AUTO) 8.2 X10'3 (1.8-7.7); NEUTROPHILS % (AUTO) 80.4 % (42-75); PLATELET COUNT 227 X10'3 (140-440); RED BLOOD COUNT 3.36 X10'6 (4.70-6.10); RED CELL DISTRIBUTION WIDTH 14.9 % (11.5-14.5); WHITE BLOOD COUNT 10.3 X10'3 (4.5-11.0)
[2019-01-17 05:38] LABS: ALBUMIN 2.9 G/DL (3.4-5.0); ANION GAP 5 (8-16); BLOOD UREA NITROGEN 9 MG/DL (7-18); BUN/CREATININE RATIO 10.3 (5.4-32.0); CALCIUM 9.6 MG/DL (8.5-10.1); CHLORIDE 109 MMOL/L (99-107); CREATININE 0.87 MG/DL (0.60-1.10); GLUCOSE 128 MG/DL (70-104); POTASSIUM 4.7 MMOL/L (3.5-5.1); SODIUM 140 MMOL/L (135-145); eGFR 89 ML/MIN
--- NOTE | 2019-01-17 06:20 | NUR ---
Problems reprioritized. Patient report given, questions answered & plan of care reviewed with Tracy Hoyt and TRACY Pinedo.
[2019-01-17 07:19] VITALS: BP 108/64
[2019-01-17 11:00] VITALS: BP 111/74
--- NOTE | 2019-01-17 16:13 | NUR ---
Bladder scan showed >999 in bladder although pt had voided 3x today. Dr Mehta notified and bowles re-ordered. Pt tolerated well 1400ml out.
--- NOTE | 2019-01-17 18:37 | NUR ---
Patient in room [facility]. I have received report from chante MCKINNEY and had the opportunity to ask questions and assume patient care.
--- NOTE | 2019-01-17 18:56 | NUR ---
Problems reprioritized. Patient report given, questions answered & plan of care reviewed with Prudence RN.
[2019-01-17 19:00] VITALS: BP 104/71
[2019-01-18] VITALS: BP 123/75
[2019-01-18] MEDS: HYDROmorphone/NS 1 mg/ml CADD 50 ML IV SCH ×6 (01:00→11:00)
[2019-01-18] MEDS: potassium CL 20mEq in D5-1/2NS 1,000 ML IV SCH ×2 (01:55→12:38)
--- NOTE | 2019-01-18 05:36 | NUR ---
wound packing taken out per MD order. Addendum: 01/18/19 at 0537 by Dominga Pal RN Amended: Links added.
[2019-01-18 05:56] LABS: BASOPHILS % (AUTO) 0.3 % (0-1); EOSINOPHILS # (AUTO) 0.4 X10'3 (0-0.9); EOSINOPHILS % (AUTO) 4.4 % (0-6); HEMATOCRIT 32.7 % (42.0-52.0); HEMOGLOBIN 11.1 g/dl (14.0-17.9); LYMPHOCYTES # (AUTO) 1.5 X10'3 (1.1-4.8); LYMPHOCYTES % (AUTO) 18.6 % (21-51); MEAN CORPUSCULAR HEMOGLOBIN 32.2 PG (27.0-31.0); MEAN CORPUSCULAR VOLUME 94.7 FL (78-98); MONOCYTES # (AUTO) 0.8 X10'3 (0-0.9); MONOCYTES % (AUTO) 9.2 % (2-12); NEUTROPHILS # (AUTO) 5.5 X10'3 (1.8-7.7); NEUTROPHILS % (AUTO) 67.5 % (42-75); PLATELET COUNT 225 X10'3 (140-440); RED BLOOD COUNT 3.46 X10'6 (4.70-6.10); WHITE BLOOD COUNT 8.2 X10'3 (4.5-11.0)
[2019-01-18 06:00] VITALS: BP 125/75
[2019-01-18 06:10] LABS: ALBUMIN 2.9 G/DL (3.4-5.0); ANION GAP 8 (8-16); BLOOD UREA NITROGEN 5 MG/DL (7-18); BUN/CREATININE RATIO 6.4 (5.4-32.0); CALCIUM 10.2 MG/DL (8.5-10.1); CHLORIDE 107 MMOL/L (99-107); CREATININE 0.78 MG/DL (0.60-1.10); GLUCOSE 93 MG/DL (70-104); SODIUM 141 MMOL/L (135-145); TOTAL CARBON DIOXIDE 26.2 MMOL/L (24-32); eGFR > 90 ML/MIN
--- NOTE | 2019-01-18 06:44 | NUR ---
Problems reprioritized. Patient report given, questions answered & plan of care reviewed with Sonia MCKINNEY.
--- NOTE | 2019-01-18 06:47 | NUR ---
Patient in room [facility]. I have received report from HANK Orr and had the opportunity to ask questions and assume patient care.
[2019-01-18 11:00] VITALS: BP 113/70
[2019-01-18] MEDS: magnesium hydroxide 30ml (MOM) UD suspension PO SCH ×2 (12:34→19:27)
[2019-01-18] MEDS: HYDROcodone/acetaminophen 10/325mg tab PO PRN ×2 (12:37→22:37)
[2019-01-18] MEDS: methylnaltrexone br 12mg/0.6ml inj***SubQ only SQ SCH (12:37)
[2019-01-18] MEDS ORDERED: HYDROmorphone 1 mg/ml syringe IV PRN (16:00)
[2019-01-18] MEDS: HYDROmorphone 1 mg/ml syringe IV PRN (17:35)
[2019-01-18] MEDS: ondansetron/PF 4mg/2ml inj IV PRN (17:53)
--- NOTE | 2019-01-18 18:08 | NUR ---
Problems reprioritized. Patient report given, questions answered & plan of care reviewed with HANK Orr.
--- NOTE | 2019-01-18 18:53 | NUR ---
Patient in room [facility]. I have received report from Sonia MCKINNEY and had the opportunity to ask questions and assume patient care.
[2019-01-18 19:00] VITALS: BP 131/78
[2019-01-18] MEDS: tamsulosin 0.4mg capsule PO SCH (21:07)
[2019-01-19] VITALS: BP 130/76
[2019-01-19] MEDS: potassium CL 20mEq in D5-1/2NS 1,000 ML IV SCH (00:08)
[2019-01-19] MEDS: ondansetron/PF 4mg/2ml inj IV PRN ×2 (00:09→21:00)
[2019-01-19 05:38] LABS: ALBUMIN 2.9 G/DL (3.4-5.0); ANION GAP 9 (8-16); BLOOD UREA NITROGEN 7 MG/DL (7-18); BUN/CREATININE RATIO 8.1 (5.4-32.0); CALCIUM 10.1 MG/DL (8.5-10.1); CHLORIDE 105 MMOL/L (99-107); CREATININE 0.86 MG/DL (0.60-1.10); GLUCOSE 109 MG/DL (70-104); SODIUM 140 MMOL/L (135-145); TOTAL CARBON DIOXIDE 26.3 MMOL/L (24-32); eGFR 90 ML/MIN
[2019-01-19 05:39] LABS: POTASSIUM 4.4 MMOL/L (3.5-5.1)
--- NOTE | 2019-01-19 06:26 | NUR ---
Problems reprioritized. Patient report given, questions answered & plan of care reviewed with Sonia MCKINNEY.
--- NOTE | 2019-01-19 06:52 | NUR ---
Patient in room [facility]. I have received report from HANK Orr and had the opportunity to ask questions and assume patient care.
[2019-01-19 07:23] VITALS: BP 109/75
[2019-01-19] MEDS: magnesium hydroxide 30ml (MOM) UD suspension PO SCH ×2 (08:00→19:12)
[2019-01-19] MEDS: enoxaparin 40mg/0.4ml syringe SUBCUT SCH (08:00)
[2019-01-19 09:38] LABS: BASOPHILS % (AUTO) 0.4 % (0-1); EOSINOPHILS # (AUTO) 0.4 X10'3 (0-0.9); EOSINOPHILS % (AUTO) 6.1 % (0-6); HEMATOCRIT 36.6 % (42.0-52.0); HEMOGLOBIN 12.3 g/dl (14.0-17.9); LYMPHOCYTES # (AUTO) 1.1 X10'3 (1.1-4.8); LYMPHOCYTES % (AUTO) 16.2 % (21-51); MEAN CORPUSCULAR HEMOGLOBIN 31.6 PG (27.0-31.0); MEAN CORPUSCULAR HGB CONC 33.6 g/dL (33.0-36.5); MEAN PLATELET VOLUME 7.1 FL (7.4-10.4); MONOCYTES # (AUTO) 0.5 X10'3 (0-0.9); MONOCYTES % (AUTO) 7.6 % (2-12); NEUTROPHILS # (AUTO) 4.9 X10'3 (1.8-7.7); NEUTROPHILS % (AUTO) 69.7 % (42-75); PLATELET COUNT 272 X10'3 (140-440); RED CELL DISTRIBUTION WIDTH 14.5 % (11.5-14.5)
[2019-01-19 11:00] VITALS: BP 127/86
[2019-01-19] MEDS: HYDROcodone/acetaminophen 10/325mg tab PO PRN ×2 (11:19→21:00)
--- NOTE | 2019-01-19 11:41 | NUR ---
JODIE'hiral dressing changed per written orders.
--- NOTE | 2019-01-19 13:52 | NUR ---
Amato cath and CHIARA drain DC'd per Dr Mart's order. Pt tolerated well, instructed to attempt voiding minimum of 1x per hour. Pt stated understanding and willingness to comply. Will continue to monitor.
--- NOTE | 2019-01-19 18:04 | NUR ---
Problems reprioritized. Patient report given, questions answered & plan of care reviewed with HANK Orr.
--- NOTE | 2019-01-19 18:53 | NUR ---
Patient in room [facility]. I have received report from Sonia MCKINNEY and had the opportunity to ask questions and assume patient care.
[2019-01-19 19:00] VITALS: BP 119/73
[2019-01-19] MEDS: tamsulosin 0.4mg capsule PO SCH (21:01)
[2019-01-20] VITALS: BP 117/79
[2019-01-20 06:07] LABS: BASOPHILS % (AUTO) 0.3 % (0-1); EOSINOPHILS # (AUTO) 0.5 X10'3 (0-0.9); HEMATOCRIT 35.4 % (42.0-52.0); HEMOGLOBIN 12.1 g/dl (14.0-17.9); LYMPHOCYTES # (AUTO) 1.1 X10'3 (1.1-4.8); LYMPHOCYTES % (AUTO) 14.4 % (21-51); MEAN CORPUSCULAR HEMOGLOBIN 32.2 PG (27.0-31.0); MEAN CORPUSCULAR HGB CONC 34.2 g/dL (33.0-36.5); MEAN CORPUSCULAR VOLUME 94.3 FL (78-98); MEAN PLATELET VOLUME 6.8 FL (7.4-10.4); MONOCYTES # (AUTO) 0.7 X10'3 (0-0.9); MONOCYTES % (AUTO) 9.3 % (2-12); NEUTROPHILS # (AUTO) 5.4 X10'3 (1.8-7.7); PLATELET COUNT 277 X10'3 (140-440); RED BLOOD COUNT 3.76 X10'6 (4.70-6.10); RED CELL DISTRIBUTION WIDTH 14.5 % (11.5-14.5); WHITE BLOOD COUNT 7.8 X10'3 (4.5-11.0)
[2019-01-20 06:19] LABS: ANION GAP 10 (8-16); BLOOD UREA NITROGEN 12 MG/DL (7-18); BUN/CREATININE RATIO 13.5 (5.4-32.0); CALCIUM 10.1 MG/DL (8.5-10.1); CHLORIDE 105 MMOL/L (99-107); CREATININE 0.89 MG/DL (0.60-1.10); GLUCOSE 89 MG/DL (70-104); POTASSIUM 4.2 MMOL/L (3.5-5.1); SODIUM 140 MMOL/L (135-145); TOTAL CARBON DIOXIDE 24.9 MMOL/L (24-32); eGFR 87 ML/MIN
--- NOTE | 2019-01-20 06:33 | NUR ---
Problems reprioritized. Patient report given, questions answered & plan of care reviewed with Sonia MCKINNEY.
[2019-01-20 08:00] VITALS: BP 119/72
[2019-01-20] MEDS: methylnaltrexone br 12mg/0.6ml inj***SubQ only SQ SCH (08:00)
[2019-01-20] MEDS: magnesium hydroxide 30ml (MOM) UD suspension PO SCH (08:00)
[2019-01-20] MEDS: enoxaparin 40mg/0.4ml syringe SUBCUT SCH (08:19)
[2019-01-20 11:39] VITALS: BP 119/75
[2019-01-20] MEDS ORDERED: HYDR-3972 PO (12:10)
[2019-01-20] MEDS ORDERED: tamsulosin capsule PO (12:10)
[2019-01-20] MEDS: HYDROcodone/acetaminophen 10/325mg tab PO PRN (13:17)
--- NOTE | 2019-01-20 13:40 | NUR ---
Pt discharged to home with all belongings, in private vehicle, accompanied by . Discharge instructions and medications reviewed, new prescription called to [facility] in [place], geoff for norco given to pt with instructions to take to pharmacy to fill. Pt provided with Dr Mehta's office number and instructed to call and make a follow up appointment in 1-2 weeks. IV DC'd, cannula intact. Pt escorted to front lobby by PCT.
== END 2019-01-20 13:41 | disposition home or self-care (01) | DRG 336 ==
LOC: PAS IN 07:07 → EDSTATUS 09:15 → SUR 3N 19:32
PROVIDERS: ADMIT Surgery; ATTEND Surgery
PROC: 0DNE0ZZ Release Large Intestine, Open Approach (ICD-10-PCS; 2019-01-15)
PROC: 0DSN0ZZ Reposition Sigmoid Colon, Open Approach (ICD-10-PCS; 2019-01-15)
PROC: 3E0T3BZ Introduction of Anesthetic Agent into Peripheral Nerves and Plexi, Percutaneous Approach (ICD-10-PCS; principal; 2019-01-15 13:47)
DX: Z43.3 Encounter for attention to colostomy (principal); K56.7 Ileus, unspecified; R33.9 Retention of urine, unspecified; Z79.899 Other long term (current) drug therapy; K66.0 Peritoneal adhesions (postprocedural) (postinfection); Z90.49 Acquired absence of other specified parts of digestive tract
CPT/HCPCS: Z7506; Z7508; 36415; 71046; 80048; 80053; 81003; 82948; 85025; 85610; 85730; 86885; 86900; 86901; 87081; 93005; A4215; A4618; A6253; A6407; A6449; A7000; C1758; C9290; G0378; J0694; J1100; J1170; J1580; J1650; J2175; J2212; J2250; J2405; J2704; J2710; J3010; J3480; J3490; J7120